=== PATIENT | female | born 1955 | race Caucasian/White ===

== ENCOUNTER → 2016-04-27 | Outpatient (CLI) | payer OTHER ==
--- NOTE | 2016-04-27 16:03 | DX ---
Right Foot - Three Views Indication: Calcaneal pain. Technique: AP, oblique, and lateral views. Comparison: None. Findings: Soft tissue tissue thickening, edema, and dystrophic calcification are present in the soft tissues posterior to the calcaneus at the insertion of the Achilles tendon. The calcaneus is otherwis e normal. No fracture or periosteal reaction to suggest stress fracture. A small plantar spur is pres ent. The midfoot and forefoot are otherwise normal. Impression: 1. Suspect Achilles tendinopathy and retrocalcaneal bursitis. 2. Small plantar spur.
== END ==
LOC: BMCIMAGING 15:01
PROVIDERS: ATTEND Podiatrist Foot & Ankle Surgery
DX: M79.671 Pain in right foot (principal)